=== PATIENT | female | born 1985 | race Hispanic/Latino ===

== ENCOUNTER 2021-07-27 13:20 | Emergency (ER) | payer MEDICAID, OTHER ==
[2021-07-27] MEDS ORDERED: Dexamethasone 10 MG/ML VIAL ONE (16:31)
== END 2021-07-27 16:45 | disposition home or self-care (01) ==
LOC: CSHERS 13:20
DX: U07.1 COVID-19 (principal); E03.9 Hypothyroidism, unspecified
CPT/HCPCS: 71045; 93005; J1100

== ENCOUNTER 2022-02-18 09:55 | Outpatient (CLI) | payer OTHER | END 2022-02-18 09:56 | disposition home or self-care (01) | LOC: CSHMAMMO 09:55 | PROVIDERS: ATTEND Nurse Practitioner Family | DX: Z12.31 Encounter for screening mammogram for malignant neoplasm of breast (principal); Z98.82 Breast implant status | CPT/HCPCS: 77067 ==

== ENCOUNTER 2022-12-30 17:11 | Emergency (ER) | payer OTHER | END 2022-12-30 20:14 | disposition home or self-care (01) | LOC: CSHERS 17:11 | DX: M79.661 Pain in right lower leg (principal); E03.9 Hypothyroidism, unspecified; F17.210 Nicotine dependence, cigarettes, uncomplicated ==